=== PATIENT | male | born 1995 | race Caucasian/White ===

== ENCOUNTER 2017-07-15 13:03 | Emergency (ER) | payer OTHER ==
[2017-07-15 13:10] VITALS: BP 131/77
== END 2017-07-15 16:10 | disposition home or self-care (01) ==
LOC: ED 13:03
DX: J02.9 Acute pharyngitis, unspecified (principal)

== ENCOUNTER 2017-08-08 16:02 | Emergency (ER) | payer OTHER ==
[~2017-08-08] VITALS: Ht 167.6 cm; Wt 81.6 kg
[2017-08-08 16:06] VITALS: BP 143/81; Ht 167.6 cm; Wt 81.6 kg
== END 2017-08-08 18:09 | disposition home or self-care (01) ==
LOC: ED 16:02
DX: L30.9 Dermatitis, unspecified (principal)

== ENCOUNTER 2018-05-23 09:44 | Emergency (ER) | payer OTHER ==
[~2018-05-23] VITALS: Ht 162.6 cm; Wt 75.7 kg
[2018-05-23 09:45] VITALS: BP 149/78; Ht 162.6 cm; Wt 75.7 kg
== END 2018-05-23 10:31 | disposition home or self-care (01) ==
LOC: ED 09:44
DX: R11.2 Nausea with vomiting, unspecified (principal); Z13.89 Encounter for screening for other disorder; F41.9 Anxiety disorder, unspecified; F32.9 Major depressive disorder, single episode, unspecified